=== PATIENT | female | born 1945 | race Caucasian/White ===

== ENCOUNTER 2019-12-21 11:29 | Emergency (ER) | payer OTHER ==
[~2019-12-21] VITALS: Ht 160 cm; Wt 69.9 kg
[2019-12-21] MEDS ORDERED: TENORMIN100 M1 (11:46)
[2019-12-21] MEDS ORDERED: ATIVAN2 M1 (11:47)
[2019-12-21] MEDS ORDERED: ATACAND (11:47)
== END 2019-12-21 17:41 | disposition home or self-care (01) ==
LOC: ER 11:29
DX: R53.1 Weakness (principal); R06.02 Shortness of breath; Z20.828 Contact with and (suspected) exposure to other viral communicable diseases